=== PATIENT | female | born 1990 ===

== ENCOUNTER → 2018-02-20 21:26 | Outpatient (REF) | payer SELFPAY ==
[2018-02-20 23:20] LABS: Ferritin 48.5 ng/mL (6.27-137)
[2018-02-21 00:17] LABS: TSH w/ Reflex to FT4 0.78 uIU/mL (0.47-4.68)
[2018-02-24 16:42] LABS: HIV Ag/Ab, 4th Gen Nonreactive (Nonreactive)
== END ==
LOC: LAB 21:26
PROVIDERS: Visit Provider Naturopath
DX: Z11.3 Encounter for screening for infections with a predominantly sexual mode of transmission (principal); Z13.89 Encounter for screening for other disorder; K59.00 Constipation, unspecified
CPT/HCPCS: 36415; 82728; 84443; 86703

== ENCOUNTER → 2018-05-16 23:20 | Outpatient (REF) | payer OTHER, SELFPAY | LOC: LAB 23:20 | PROVIDERS: Visit Provider Naturopath | DX: N76.0 Acute vaginitis (principal); Z11.3 Encounter for screening for infections with a predominantly sexual mode of transmission | CPT/HCPCS: 87491; 87591; 87798; 87801 ==